=== PATIENT | female | born 1965 | race Caucasian/White ===

== ENCOUNTER 2017-11-20 06:34 | Day surgery (SDC) | payer MEDICAID ==
[2017-11-20 07:32] VITALS: TEMP 97.4
[2017-11-20] MEDS ORDERED: Propofol 10 mg/ml Inj (20 ML) ONE (08:38)
[2017-11-20 10:03] VITALS: BP 134/72; PULSE 79; RESP 18; O2SAT 98
== END 2017-11-20 10:00 | disposition home or self-care (01) ==
LOC: C.ENDO 06:34
PROVIDERS: ATTEND Internal Medicine Gastroenterology
DX: D50.9 Iron deficiency anemia, unspecified (principal); D12.3 Benign neoplasm of transverse colon; K62.1 Rectal polyp; K57.90 Diverticulosis of intestine, part unspecified, without perforation or abscess without bleeding
CPT/HCPCS: 45380; 82948; 88305; J2704